=== PATIENT | male | born 1995 | race Caucasian/White ===

== ENCOUNTER 2024-07-04 17:27 | Emergency (ER) | payer SELFPAY | END 2024-07-04 18:34 | LOC: CSHERS 17:27 | DX: F15.90 Other stimulant use, unspecified, uncomplicated (principal); Z55.0 Illiteracy and low-level literacy | CPT/HCPCS: 99284 ==

== ENCOUNTER 2024-07-05 04:27 | Emergency (ER) | payer SELFPAY ==
[2024-07-05] MEDS ORDERED: hydrOXYzine 25 MG TAB ONE (04:52)
== END 2024-07-05 08:01 | disposition home or self-care (01) ==
LOC: CSHERS 04:27
DX: L25.9 Unspecified contact dermatitis, unspecified cause (principal); F15.90 Other stimulant use, unspecified, uncomplicated
CPT/HCPCS: 99282